=== PATIENT | male | born 1960 | race Caucasian/White ===

== ENCOUNTER → 2016-09-09 | Outpatient (CLI) | payer MEDICARE ==
[~2016-09-09] MED LIST: BREO ELLIPTA 11 EACH IH; DIVA500T2 PO; DOCU-27 PO; HYDR-965 PO; HYDR-971 PO; METH-38 PO; NAPR500T3 PO; QUET400T4 PO; TAMS0.4C97 PO; TRAV5DRO OS
--- NOTE | 2016-09-09 15:28 | EKG ---
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
[2016-09-09 16:20] LABS: BASO # 0.1 x10^3/uL (0.0-0.2); BASO % 1 % (0-3); EOS % 2 % (0-3); HEMATOCRIT 44.2 % (39.0-53.0); HEMOGLOBIN 15.4 g/dL (13.0-17.5); LYMPH # 2.3 x10^3/uL (1.0-4.8); LYMPH % 23 % (24-48); MEAN CORPUSCULAR HEMOGLOBIN 35 pg (25-35); MEAN CORPUSCULAR HGB CONC 35 g/dL (31-37); MEAN CORPUSCULAR VOLUME 101 fL (79-100); MONO % 13 % (0-9); NEUT % 62 % (31-73); PLATELET COUNT 274 x10^3/uL (140-400); RED BLOOD COUNT 4.39 x10^6/uL (4.30-5.70); RED CELL DISTRIBUTION WIDTH 13.1 % (11.5-14.5); WHITE BLOOD COUNT 10.4 x10^3/uL (4.0-11.0)
[2016-09-09 16:26] LABS: ALBUMIN 4.2 g/dL (3.4-5.0); ALBUMIN/GLOBULIN RATIO 1.1 (1.0-1.7); CALCIUM 9.4 mg/dL (8.5-10.1); CREATININE 0.7 mg/dL (0.7-1.3); GFR 117.5; POTASSIUM 4.3 mmol/L (3.5-5.1); TOTAL BILIRUBIN 0.7 mg/dL (0.2-1.0); TOTAL PROTEIN 8.2 g/dL (6.4-8.2)
--- NOTE | 2016-09-09 16:40 | RAD ---
EXAM: CHEST 2 VIEWS History: Preop lumbar spine COMPARISON: None available. TECHNIQUE: PA and lateral chest radiographs FINDINGS: The cardiomediastinal silhouette is within normal limits. The lungs are clear bilaterally. The costophrenic sulci are clear and well demarcated bilaterally. IMPRESSION: No radiographic evidence of an acute cardiopulmonary abnormality.
--- NOTE | 2016-09-11 10:14 | HP ---
ADMIT DATE: PREOPERATIVE HISTORY AND PHYSICAL Zan Cooley dictating for Dr. Fred Shields. HISTORY OF PRESENT ILLNESS: The patient is a pleasant 56-year-old who is having difficulty with low back pain and pain, which reaches both of his lower extremities. The right leg is more involved than the left. The pain does radiate into his right buttock and posterior thigh and leg. The pain started about 5 years ago and has been slowly worsening. He rates his pain as 5-6/10. Standing and sitting for long periods exacerbates his pain. Stretching or hot showers help. He takes Bruning as well for help. He has had physical therapy, which has increased his pain. He saw another surgeon last year, who recommended lumbar laminectomy. PAST MEDICAL HISTORY: Arthritis, blood clots, COPD, epilepsy, seizures, headaches/migraines, heart attack/failure, hypertension and psychiatric care. PAST SURGICAL HISTORY: Arthroscopy in 1975. FAMILY HISTORY: Brain tumor, cancer, heart problems/disease, hypertension, heart attack at an early age. SOCIAL HISTORY: Single. Exercises daily. Denies substance abuse. Smokes 1 pack per day and has for 35 years. Quit drinking alcohol 1 year ago. Drinks coffee and soda daily. ALLERGIES: DEMEROL AND GABAPENTIN. CURRENT MEDICATIONS: Depakote, Bruning, Travatan, Seroquel, senna. REVIEW OF SYSTEMS: A 12-point review of systems was obtained and is noncontributory except for that mentioned above. PHYSICAL EXAMINATION: NEUROSURGERY EXAMINATION: GENERAL APPEARANCE: Alert, pleasant, in no acute distress. HEAD: Normocephalic and atraumatic. SKIN: Warm and dry. MUSCULOSKELETAL: Lumbar paraspinal muscle bulk is normal, restricted range of motion of lumbar spine, diwa-ty-gbmdmedg tenderness of lower lumbar spine with palpation, normal range of motion of the lower extremities bilaterally. EXTREMITIES: No clubbing, cyanosis or edema. NEUROLOGIC: Alert and oriented x 3, normal recent and remote memory, strength 5/5 in bilateral lower extremities, sensory is intact to light touch in bilateral lower extremities, reflexes are trace and symmetric in the lower extremities bilaterally, positive straight leg raising on the right, negative straight leg raising on the left. Normal gait. IMAGING: Reviewed. I reviewed a lumbar MRI scan. On that study, the principal abnormalities are at L4-L5 where there is severe central spinal stenosis due to hypertrophic facet and thickened ligamentum flavum, worse on the right side as well as significant broad-based posterior disk protrusion. There was more klwm-oi-apfzgzoe stenosis at L3-L4. ASSESSMENT: 1. Spinal stenosis, lumbar region. 2. Intervertebral disk disorders with radiculopathy, lumbar region. PLAN: He has significant lumbar spinal stenosis at L4-L5, which is quite symptomatic. I recommended a bilateral lumbar hemilaminotomy with decompression of dura and nerve root as well as lumbar diskectomy to see if this one helps him. I discussed the surgery and the risks involved. He would like to go ahead. We will make the arrangements. FRED SHIELDS MD DR: ELÍAS/chino JOB#: [id number] / [id number]
== END | disposition home or self-care (01) ==
LOC: SURGPAT 16:02
PROVIDERS: ATTEND Neurological Surgery
DX: Z01.818 Encounter for other preprocedural examination (principal); R07.89 Other chest pain
CPT/HCPCS: 36415; 71020; 80053; 85027; 87641; 93005

== ENCOUNTER 2016-09-12 08:05 | Observation (INO) | payer MEDICARE ==
[2016-09-12] VITALS (10 sets, daily range): BP systolic 102–125; BP diastolic 65–85
[~2016-09-12] VITALS: Ht 185.4 cm; Wt 82.8 kg
[~2016-09-12 08:05] MED LIST changes: +BACITRACIN 50,000 UNIT in IV NORMAL SALINE 1000ML BAG 1,000 ML IRR ONE; +BUPIVAC MPF-EPI 0.5%-1:200000 30 ML VIAL. ONE; -DOCU-27 PO; -HYDR-965 PO; -METH-38 PO
[2016-09-12] MEDS ORDERED: IV RINGERS,LACTATED 1000ML 1,000 ML IV SCH ×2 (08:21→09:06)
[2016-09-12] MEDS ORDERED: BUPIVAC MPF-EPI 0.5%-1:200000 30 ML VIAL. ONE (08:22)
[2016-09-12] MEDS ORDERED: THROMBIN TOPICAL 20,000 UNIT SPRAY.SYRN KIT TP ONE (08:23)
[2016-09-12] MEDS ORDERED: GELATIN SPONGE SIZE 100. ONE (08:23)
[2016-09-12] MEDS ORDERED: KETOROLAC 60 MG/2 ML INJ FOR OR. ONE (08:23)
[2016-09-12] MEDS ORDERED: MIDAZOLAM HCL/PF 2 MG/2 ML VIAL. IV PRN (08:30)
[2016-09-12] MEDS ORDERED: LIDOCAINE 1% 1 ML SYRINGE. ID PRN ×2 (08:30→09:15)
[2016-09-12] MEDS ORDERED: fentaNYL PF VIAL 100 MCG/2 ML VIAL IV PRN ×2 (08:30→09:15)
[2016-09-12] MEDS ORDERED: MORPHINE SULFATE 2 MG/ML DISP.SYRIN. IV PRN (09:15)
[2016-09-12] MEDS ORDERED: HYDROmorphone 2 MG/ML VIAL IV PRN (09:15)
[2016-09-12] MEDS ORDERED: PROCHLORPERAZINE 10 MG/2 ML VIAL. IV PRN (09:15)
[2016-09-12] MEDS ORDERED: ONDANSETRON PF 4 MG/2 ML VIAL. IV PRN (09:15)
[2016-09-12] MEDS ORDERED: PHENYLEPHRINE 10 MG/ML VIAL. ONE (10:26)
[2016-09-12] MEDS ORDERED: PROPOFOL 50 ML IV ONE ×2 (10:26→12:26)
[2016-09-12] MEDS ORDERED: ONDANSETRON PF 4 MG/2 ML VIAL. ONE (10:26)
[2016-09-12] MEDS ORDERED: LIDOCAINE 2% PF Vial for OR 5 ML VIAL. ONE (10:26)
[2016-09-12] MEDS ORDERED: DEXAMETHASONE SOD PHOS 20 MG/5 ML VIAL. ONE (10:26)
[2016-09-12] MEDS ORDERED: PROPOFOL 20 ML IV ONE (10:26)
[2016-09-12] MEDS ORDERED: 0.9 % SODIUM CHLORIDE 50 ML VIAL. IJ ONE (10:27)
[2016-09-12] MEDS ORDERED: MIDAZOLAM HCL/PF 2 MG/2 ML VIAL. ONE (10:27)
[2016-09-12] MEDS ORDERED: REMIFENTANIL 2 MG VIAL. IV ONE (10:27)
[2016-09-12] MEDS ORDERED: ROCURONIUM 50 MG/5 ML VIAL. ONE (10:27)
[2016-09-12] MEDS ORDERED: MINERAL OIL/PETROLATUM,WHITE OPHTH OINT 3.5GM TUBE. ONE (10:28)
[2016-09-12] MEDS ORDERED: DESFLURANE > 120 MINUTES IH ONE (10:42)
--- NOTE | 2016-09-12 14:04 | DISCH ---
DISCHARGE INSTRUCTIONS Condition on Discharge Condition on Discharge: Stable Activity After Discharge Activity Instructions for Disc: Activity as tolerated, Avoid exertion Other activity instructions: no driving for a week Bathing Instructions: Shower-keep dressing dry Lifting Instructions after Dis: No heavy lifting, No pulling or pushing, Do not lift >10 pounds Diet after Discharge Additional Diet Restrictions: resume home diet Wound Incision Care Wound/Incision Care: Ice to area for comfort Other wound/incision instructi: may remove dressing in 48 hrs if dry then may shower no soaking Contacting the after DC Call your doctor for: Concerns you may have Follow-Up Follow up with: Dr. Shields's nurse in 2 weeks [phone] CALIXTO SHIELDS MD September 12, 2016 14:04
[2016-09-12] MEDS ORDERED: DOCU-27 PO (14:06)
[2016-09-12] MEDS ORDERED: METH-38 PO (14:06)
[2016-09-12] MEDS ORDERED: HYDR-965 PO (14:07)
[2016-09-12] MEDS ORDERED: NAPROXEN 500 MG TABLET PO PRN ×2 (14:30→15:00)
[2016-09-12] MEDS: fentaNYL PF VIAL 100 MCG/2 ML VIAL IV PRN ×4 (14:31→16:54)
[2016-09-12] MEDS ORDERED: HYDROcodone/APAP 7.5/325MG 1 TAB TABLET PO PRN (14:45)
[2016-09-12] MEDS ORDERED: ACETAMINOPHEN 325 MG TABLET. PO PRN (14:45)
[2016-09-12] MEDS ORDERED: MAG HYDROX/ALUMINUM HYD/SIMETH 30 ML ORAL.SUSP PO PRN (14:45)
[2016-09-12] MEDS ORDERED: CALCIUM CARBONATE 500 MG TAB.CHEW PO PRN (14:45)
[2016-09-12] MEDS ORDERED: diphenhydrAMINE 50 MG/ML VIAL IV PRN (14:45)
[2016-09-12] MEDS ORDERED: diphenhydrAMINE HCL 25 MG CAPSULE PO PRN (14:45)
[2016-09-12] MEDS ORDERED: MAGNESIUM HYDROXIDE 2,400 MG/30 ML ORAL.SUSP. PO PRN (14:45)
[2016-09-12] MEDS ORDERED: 0.9 % SODIUM CHLORIDE 10 ML DISP.SYRIN. IV PRN (14:45)
[2016-09-12] MEDS: POTASSIUM CL 20MEQ D5-0.45NACL 1,000 ML IV SCH (15:21)
[2016-09-12] MEDS: ALBUTEROL SULFATE 2.5 MG/3 ML NEBU. NEB SCH ×2 (15:31→20:38)
[2016-09-12] MEDS: HYDROcodone/APAP 7.5/325MG 1 TAB TABLET PO PRN (18:14)
[2016-09-12] MEDS: BUDESONIDE 0.5 MG/2 ML NEBU. NEB SCH (20:38)
[2016-09-12] MEDS ORDERED: LATANOPROST 0.005% OPHTH SOLUTION 2.5ML BOTTLE. OU SCH (21:00)
[2016-09-12] MEDS ORDERED: QUEtiapine 100 MG TABLET. PO SCH (21:00)
[2016-09-12] MEDS: METHOCARBAMOL 750 MG TABLET PO SCH (21:43)
[2016-09-12] MEDS: DOCUSATE SODIUM 100 MG CAPSULE. PO SCH (21:43)
[2016-09-13] MEDS: POTASSIUM CL 20MEQ D5-0.45NACL 1,000 ML IV SCH ×2 (00:31→10:31)
[2016-09-13] MEDS: HYDROcodone/APAP 7.5/325MG 1 TAB TABLET PO PRN ×3 (01:01→09:38)
[2016-09-13 03:02] VITALS: BP 94/49
[2016-09-13 06:39] VITALS: BP 131/70
[2016-09-13] MEDS: METHOCARBAMOL 750 MG TABLET PO SCH (08:28)
[2016-09-13] MEDS: DOCUSATE SODIUM 100 MG CAPSULE. PO SCH (08:28)
[2016-09-13] MEDS: ALBUTEROL SULFATE 2.5 MG/3 ML NEBU. NEB SCH ×2 (08:36→12:26)
[2016-09-13] MEDS: BUDESONIDE 0.5 MG/2 ML NEBU. NEB SCH (08:36)
[2016-09-13] MEDS ORDERED: TAMSULOSIN 0.4 MG CAP.ER.24H. PO SCH (09:00)
[2016-09-13] MEDS ORDERED: DIVALPROEX DELAYED RELEASE 500 MG TABLET.DR. PO SCH (09:00)
--- NOTE | 2016-09-13 10:13 | HP ---
ADMIT DATE: 09/12/2016 PREOPERATIVE HISTORY AND PHYSICAL Zan Cooley dictating for Dr. Fred Shields. HISTORY OF PRESENT ILLNESS: The patient is a pleasant 56-year-old who is having difficulty with low back pain and pain, which reaches both of his lower extremities. The right leg is more involved than the left. The pain does radiate into his right buttock and posterior thigh and leg. The pain started about 5 years ago and has been slowly worsening. He rates his pain as 5-6/10. Standing and sitting for long periods exacerbates his pain. Stretching or hot showers help. He takes Porum as well for help. He has had physical therapy, which has increased his pain. He saw another surgeon last year, who recommended lumbar laminectomy. PAST MEDICAL HISTORY: Arthritis, blood clots, COPD, epilepsy, seizures, headaches/migraines, heart attack/failure, hypertension and psychiatric care. PAST SURGICAL HISTORY: Arthroscopy in 1975. FAMILY HISTORY: Brain tumor, cancer, heart problems/disease, hypertension, heart attack at an early age. SOCIAL HISTORY: Single. Exercises daily. Denies substance abuse. Smokes 1 pack per day and has for 35 years. Quit drinking alcohol 1 year ago. Drinks coffee and soda daily. ALLERGIES: DEMEROL AND GABAPENTIN. CURRENT MEDICATIONS: Depakote, Porum, Travatan, Seroquel, senna. REVIEW OF SYSTEMS: A 12-point review of systems was obtained and is noncontributory except for that mentioned above. PHYSICAL EXAMINATION: NEUROSURGERY EXAMINATION: GENERAL APPEARANCE: Alert, pleasant, in no acute distress. HEAD: Normocephalic and atraumatic. SKIN: Warm and dry. MUSCULOSKELETAL: Lumbar paraspinal muscle bulk is normal, restricted range of motion of lumbar spine, ffgi-hq-jqgummtu tenderness of lower lumbar spine with palpation, normal range of motion of the lower extremities bilaterally. EXTREMITIES: No clubbing, cyanosis or edema. NEUROLOGIC: Alert and oriented x 3, normal recent and remote memory, strength 5/5 in bilateral lower extremities, sensory is intact to light touch in bilateral lower extremities, reflexes are trace and symmetric in the lower extremities bilaterally, positive straight leg raising on the right, negative straight leg raising on the left. Normal gait. IMAGING: Reviewed. I reviewed a lumbar MRI scan. On that study, the principal abnormalities are at L4-L5 where there is severe central spinal stenosis due to hypertrophic facet and thickened ligamentum flavum, worse on the right side as well as significant broad-based posterior disk protrusion. There was more tsbl-kh-unwhczmn stenosis at L3-L4. ASSESSMENT: 1. Spinal stenosis, lumbar region. 2. Intervertebral disk disorders with radiculopathy, lumbar region. PLAN: He has significant lumbar spinal stenosis at L4-L5, which is quite symptomatic. I recommended a bilateral lumbar hemilaminotomy with decompression of dura and nerve root as well as lumbar diskectomy to see if this one helps him. I discussed the surgery and the risks involved. He would like to go ahead. We will make the arrangements. FRED SHIELDS MD DR: ELÍAS/chino JOB#: [id number] / [id number]
[2016-09-13 10:59] VITALS: BP 111/63
[2016-09-13] MEDS ORDERED: NON FORMULARY ITEM (Fluticasone/Vilanterol (Breo Ellipta 100-25 Mcg Inh) 1 PUFF) IH SCH (12:00)
--- NOTE | 2016-09-13 13:19 | OP ---
DATE OF SURGERY: 09/12/2016 PREOPERATIVE DIAGNOSIS: Severe lumbar spinal stenosis L4-L5. POSTOPERATIVE DIAGNOSIS: Severe lumbar spinal stenosis, L4-L5. OPERATION PERFORMED: 1. Bilateral hemilaminotomies with decompression of dura and nerve root L4-L5. 2. Lumbar microdiskectomy L4-L5, right. The operation was done with the EMG monitoring, fluoroscopy, microscopic dissection. BOTTLING ROOM WORKER: Susan Levy APRN assisted with the surgery. She assisted with the decompression, diskectomy as well as the closure. OPERATIVE INDICATIONS: The patient is a very pleasant 56-year-old man who developed intractable back and bilateral leg pain. He underwent physical therapy with no help. He saw another surgeon last year, recommended lumbar laminectomy. On imaging studies, he had very significant stenosis at L4-L5, which was worse on the right side along with significant degenerative problems with disk bulging. I recommended lumbar bilateral microdecompressive surgery at L4-L5. I discussed with him the surgery and the risks involved. He did have some stenosis ____ uqow-ib-rjdpbxuf stenosis at L3-L4, but I felt that this is not symptomatic and could not recommended surgery at this level at this time. He understood the rationale for surgery, the risks involved. He wished to go ahead. DESCRIPTION OF PROCEDURE: Following general endotracheal anesthesia, the patient was positioned prone on the Antione table. His lumbar region was prepped and draped in standard fashion. RICKEY hose and AV impulse boots were applied for DVT prophylaxis. A microscope was draped. Fluoroscopy was draped and brought into field. Monitoring was established. Ancef 2 g was given less than 1 hour prior to initiation of the surgery. Using fluoroscopic guidance, an incision was made over the L4-L5 interspace. I dissected down through skin, subcutaneous tissue, reflected the paraspinal muscles and placed a [place] micro disk retractor. I began to work on the right side and through the microscope using microscopic technique, I burred down a generous hemilaminotomy. I drilled down to perform a partial foraminotomy and exposed the exiting roots and then superior to this side. I again exposed the ligamentum flavum. I then trimmed this away from medial to lateral, exposing the dura and the exiting root. There was synovial cyst material emanating from the facet, but did not appear to be a significant contact with the dura and/or ligament; however; this side was densely scarred to the underlying dura. I gently worked down through this and peeled then trimmed away ligament and gradually was able to obtain an excellent decompression. I reflected the dura medially. There was significant disk bulging and subligamentous herniated disk and I incised the ligament annulus and then worked and performed a diskectomy with pituitary rongeurs which was fully decompress the entire region. At this point, then I had an excellent decompression on the right side at L4-L5 and I switched to the left and replaced retracting the left side and brought again through the microscope with microscopic technique. I burred down a generous hemilaminotomy and a partial foraminotomy. Again, I trimmed away very thickened ligamentum flavum. On this side ligamentum flavum was a primary problem was very thick and compressing the dura and the exiting root and I peeled this material away was not nearly the contralateral side, the disk was much flatter and firmer and no diskectomy was warranted on this side as I worked and fully decompressed the dura and the exiting root. The region became very well decompressed. I did use small amounts of bone wax on both sides as well as bipolar cautery for hemostasis. Following this, I irrigated copiously with antibiotic solution. I assured myself of excellent hemostasis in the muscle. I closed the wound in layers with absorbable sutures; the skin was closed with 4-0 subcuticular stitch. Operation went very well and the patient was taken to recovery room in excellent condition. I was quite pleased with the surgery. CALIXTO SHIELDS MD DR: ELÍAS/chino JOB#: [id number] / [id number]
--- NOTE | 2016-09-16 15:24 | PATHOLOGY ---
PATHOLOGY REPORT * * * * * * * * FINAL DIAGNOSIS: Segments of fibrocartilaginous, fibroadipose, and skeletal muscle tissue and bone, lumbar disc and decompression: - Degenerative changes of fibrocartilaginous tissue. COMMENT: There is no evidence of an acute inflammatory process or malignancy. (JPM:tona; d/t: 09/16/2016) REPORT ELECTRONICALLY SIGNED BY: Mohan Foster M.D. DATE/TIME: 09/16/2016 15:23 * * * * * * * * GROSS PATHOLOGY: Received in formalin labeled "Garth Marin, lumbar disc and decompression," are multiple segments of melvin rubbery and gritty tissue measuring 6.9 x 6.3 x 0.9 cm in aggregate dimensions admixed with bone. The tissue is submitted representatively in cassette A1, following decalcification (KAH:tona; 09/13/2016) INITIAL CPT CODE(S): A; 00149, 07729 Professional services [place] [facility] [place] [address] Technical services performed by [facility] at [address] [place] [address]. SPECIMEN(S) RECEIVED: A.Lumbar disc and decompression CLINICAL HISTORY: Lumbar stenosis PATIENT: GARTH MARIN /AGE: 9 1960 (Age: 56) PATIENT #: [id number] ALT CASE #: SPECIMEN COLLECTION DATE: 09/12/2016 SPECIMEN RECEIVED DATE: 09/12/2016 [facility] - [address] [place] [address] - PHONE: [phone] * * * END OF REPORT * * *
== END 2016-09-13 12:35 | disposition home or self-care (01) ==
LOC: SURG 08:05 → 4 SOUTHEST 14:30
PROVIDERS: ADMIT Neurological Surgery; ATTEND Neurological Surgery
DX: M48.06 Spinal stenosis, lumbar region (principal); M54.16 Radiculopathy, lumbar region; I10 Essential (primary) hypertension; J44.9 Chronic obstructive pulmonary disease, unspecified; G40.909 Epilepsy, unspecified, not intractable, without status epilepticus
CPT/HCPCS: 63030; 76000; 94250; 94640; 94760; 96374; 96376; 97116; 97162; 99406; G0378; G0379; G8978; G8979; G8980; J0690; J1100; J1885; J2250; J2405; J2704; J3010; J3490; J7030; J7120

== ENCOUNTER → 2016-12-20 | Outpatient (CLI) | payer MEDICARE, OTHER ==
[~2016-12-20] MED LIST changes: -BACITRACIN 50,000 UNIT in IV NORMAL SALINE 1000ML BAG 1,000 ML IRR ONE; -BUPIVAC MPF-EPI 0.5%-1:200000 30 ML VIAL. ONE; +DOCU-109 PO; +HYDR-965 PO; +METH-38 PO
--- NOTE | 2016-12-20 13:06 | RAD ---
APPROVED REPORT Test Type: Pharmacological Stress Nurse/Tech: Rayna Carbone R.N. Test Indications: SOA Cardiac History: seizures, smoker Medications: See Electronic Medical Record Medical History: See Electronic Medical Record Resting ECG: NSR with PVC's Resting Heart Rate: 79 bpm Resting Blood Pressure: 134/77mmHg Pretest Chest Pain: No chest pain Nurse/Tech Notes S1S2, lungs sound clear Consent: The procedure was explained to the patient in lay terms. Informed consent was witnessed. Ruddy eout was entered into [employer]. History and Stress Test performed by Rayna Carbone R.N. Stress Symptoms Dyspnea POST EXERCISE Reason for Termination: Reached target heart rate Target HR: 141 Max HR: 169 bpm Exercise duration: 8 min min:sec, 3 Stage Max Blood Pressure: 141/80mmHg Blood Pressure response to exercise: Normal blood pressure response during stress. Heart Rate response to exercise: wni Chest Pain: No. Arrhythmia: Yes. no PVC's noted during exercise but had bigeminy during recovery ST Change: No. INTERPRETATION Stress EKG Conclusion: Occ PVC's in recovery suggestive of ischemia but no sustained arrhythmias. No clear ischemia noted. Imaging Protocol IMAGE PROTOCOL: Rest Tc-99m/stress Tc-99m 1 day Rest: Stress: Viability: Radiopharm.Tc99m CdbrbijgyUx70q Sestamibi Dose11.3mCi 33mCi Duration 15min. 12min. Img Date 12/20/2016 12/20/2016 Inj-Img Paeb91gvn. 60min. Rest Admin Site:IV - Right AntecubitalAdministrator:RT Yaneth (R)(N) Stress Admin Site: IV - Right AntecubitalAdministrator: RT Yaneth (R)(N) STRESS DATA End Diast. Vol.128.0mlAv. Heart Rate79.0bpm End Syst. Vol.51.0mlCO Index BSA0.0L/min Myocardial Xdiy154.0gEject. Cixcjqne66.0% Stress Rates Pk. Fill Rate3.02EDV/secLVtime Pk. Fill 185.76msec Pk. Empty Rate3.53ESV/secLVtime Pk. Vjxhx173.53msec 04/30 Pk. Fill1.06EDV/sec Stress Scores Regional WT1.00Summed WT6.00 Regional WM0.00Summed WM2.00 The rest and stress images show normal perfusion, normal contraction and thickening. LV Perf. Quant 17 Seg. SSS0.00 17 Seg. SRS1.00 17 Seg. SDS0.00 Stress Defect Extent (% LAD)0.00Rest Defect Extent (% LAD)0.00Rev. Defect Extent (% LAD)0.00 Stress Defect Extent (% LCX) 0.00Rest Defect Extent (% LCX)0.00Rev. Defect Extent (% LCX)0.00 Stress Defect Extent (% RCA)0.00Rest Defect Extent (% RCA)0.00Rev. Defect Extent (% RCA)0.00 Stress Defect Extent (% PEMA)0.00Rest Defect Extent (% PEMA)0.00Rev. Defect Extent (% PEMA)0.00 Other Information Quality:Fair Risk Assessment: Low Risk Conclusion 1. Average exercise capacity with 9.0 Mets on Abhijit Protocol. 2. EKG suggestive but not diagnostic of ischemia with PVC's in recovery. 3. Normal perfusion at stress/rest. 4. Normal EF at > 60% 5. Low risk study.
== END | disposition home or self-care (01) ==
LOC: NM 07:36
PROVIDERS: ATTEND Internal Medicine Pulmonary Disease
DX: R06.02 Shortness of breath (principal); J44.9 Chronic obstructive pulmonary disease, unspecified; F17.200 Nicotine dependence, unspecified, uncomplicated
CPT/HCPCS: 78452; 93017; 96374; 96376; A9500

== ENCOUNTER 2017-04-01 09:17 | Outpatient (CLI) | payer MEDICARE, OTHER ==
[~2017-04-01] VITALS: Ht 185.4 cm; Wt 79.4 kg
[2017-04-01] VITALS (11 sets, daily range): BP systolic 84–119; BP diastolic 55–81
[~2017-04-01 09:17] MED LIST changes: -NAPR500T3 PO; +NAPR500T4 PO
[2017-04-01 10:22] LABS: BASO # 0.1 x10^3/uL (0.0-0.2); BASO % 2 % (0-3); EOS % 11 % (0-3); HEMATOCRIT 43.6 % (39.0-53.0); HEMOGLOBIN 14.8 g/dL (13.0-17.5); LYMPH # 2.8 x10^3/uL (1.0-4.8); LYMPH % 45 % (24-48); MEAN CORPUSCULAR HEMOGLOBIN 35 pg (25-35); MEAN CORPUSCULAR HGB CONC 34 g/dL (31-37); MEAN CORPUSCULAR VOLUME 102 fL (79-100); MONO % 12 % (0-9); NEUT % 30 % (31-73); PLATELET COUNT 238 x10^3/uL (140-400); RED BLOOD COUNT 4.27 x10^6/uL (4.30-5.70); RED CELL DISTRIBUTION WIDTH 12.8 % (11.5-14.5); WHITE BLOOD COUNT 6.1 x10^3/uL (4.0-11.0)
[2017-04-01 10:31] LABS: PROTHROMBIN TIME PATIENT 12.3 SEC (11.7-14.0)
[2017-04-01 10:59] LABS: CALCIUM 9.3 mg/dL (8.5-10.1); CREATININE 0.8 mg/dL (0.7-1.3); GFR 100.4; POTASSIUM 3.9 mmol/L (3.5-5.1)
[2017-04-01 11:05] LABS: ALBUMIN 3.8 g/dL (3.4-5.0); TOTAL BILIRUBIN 0.5 mg/dL (0.2-1.0); TOTAL PROTEIN 7.6 g/dL (6.4-8.2)
[2017-04-01] MEDS ORDERED: LIDOCAINE 2% 20 ML VIAL. ONE (12:01)
[2017-04-01] MEDS ORDERED: IOHEXOL 300 MG/ML 100ML VIAL. ONE (12:01)
[2017-04-01] MEDS ORDERED: HEPARIN for IV BOLUS 10,000 UNIT/10 ML VIAL. ONE (12:14)
[2017-04-01] MEDS ORDERED: VERAPAMIL 5 MG/2 ML VIAL. ONE (12:14)
[2017-04-01] MEDS ORDERED: MIDAZOLAM HCL/PF 2 MG/2 ML VIAL. ONE (12:14)
[2017-04-01] MEDS ORDERED: fentaNYL PF VIAL 100 MCG/2 ML VIAL ONE (12:14)
[2017-04-01] MEDS ORDERED: NITROGLYCERIN 200 MCG/2 ML SYRINGE FOR CATH/VASC LAB. ONE (12:16)
[2017-04-01] MEDS ORDERED: LIDOCAINE 2% 20 ML VIAL. IJ ONE (12:45)
[2017-04-01] MEDS ORDERED: CONTRAST GIVEN MC PRN (12:45)
[2017-04-01] MEDS ORDERED: HEPARIN for IV BOLUS 10,000 UNIT/10 ML VIAL. IART ONE (12:45)
[2017-04-01] MEDS ORDERED: MIDAZOLAM HCL/PF 2 MG/2 ML VIAL. IV ONE (12:45)
[2017-04-01] MEDS ORDERED: VERAPAMIL 5 MG/2 ML VIAL. IART ONE (12:45)
[2017-04-01] MEDS ORDERED: fentaNYL PF VIAL 100 MCG/2 ML VIAL IV ONE (12:45)
[2017-04-01] MEDS ORDERED: IOHEXOL 300 MG/ML 100ML VIAL. IART ONE (12:45)
[2017-04-01] MEDS ORDERED: NITROGLYCERIN 200 MCG/2 ML SYRINGE FOR CATH/VASC LAB. IART ONE (12:45)
--- NOTE | 2017-04-01 13:09 | CARD ---
APPROVED REPORT Procedure(s) performed: Left heart catheterization, selective coronary angiography and left ventricul ography via right transradial approach. Moderate Sedation: 28 Minutes INDICATION The indication(s) include : Chest pain, abnormal stress test, PVC's. PROCEDURE NARRATIVE After explaining the risks, benefits and alternative options, informed consent was obtained from mack ent. Patient was brought to the cardiac Veneer Marker and right wrist was prepped and draped in the usual fashion after confirming a positive modified Ray's test. Arterial access was obtained in the [facility] t radial artery and a 6 Kittitian sheath was inserted. 6 Kittitian Rajesh catheter was used to perform bharath ective angiography of the left and right coronary arteries. 6 Kittitian pigtail catheter was used to pe rform left ventriculography. Patient tolerated the procedure well. Hemostasis was achieved using TR band. There were no immediate complications. The following findings were noted. FINDINGS 1. Hemodynamics: Left ventricular end-diastolic pressure of 18 mmHg. No pullback gradient across th e aortic valve. 2. Left ventriculography: Normal left ventricle systolic function with ejection fraction estimated at 55%. No significant mitral regurgitation seen. 3. Coronary angiography: a. The left main coronary artery arose from the left sinus of Valsalva, gave rise to the left anteri or descending and left circumflex arteries and did not show any significant stenosis. b. The left anterior descending artery did not show any significant stenosis. c. The left circumflex artery did not show any significant stenosis. d. The right coronary artery arose from the right sinus of Valsalva and did not show any significant stenosis. Conclusion 1. No significant coronary artery disease 2. Normal left ventricle systolic function with ejection fraction estimated at 55%. Recommendations Medical Therapy
[2017-04-01] MEDS ORDERED: IV 1/2 NORMAL SALINE 1,000 ML IV SCH (13:10)
--- NOTE | 2017-04-01 13:12 | PDOC ---
MODERATE SEDATION ASSESSMENT RISKS/ALTERNATIVES Risks/Alternatives Risks and alternatives of this type of sedation and procedure discussed with: RISK/ALTERNATIVES: Patient H & P ON CHART H & P H & P on chart and reviewed for co-morbid conditions and appropriate labs. H&P ON CHART: Yes STATUS PREG STATUS ASSESSED: N/A MEDS/ALLERGIES REVIEWED Meds/Allergies Reviewed Medications and Allergies including time and route of recently administered narcotics and sedatives. MEDS/ALLERGIES REVIEWED: Yes ASA RATING ASA RATING: II AIRWAY ASSESSMENT Airway Assessment Airway patency, oral function limitations, presence of caps, crowns, dentures, partials, and ability to extend neck assessed. AIRWAY ASSESSMENT: Yes MALLAMPATI SCORE MALLAMPATI SCORE: II PRE-SEDATION ASSESSMENT PRE-SEDATION ASSESSMENT: Yes RAFAELA RICCI MD Apr 01, 2017 13:12
[2017-04-01] MEDS ORDERED: NITROGLYCERIN SUBLINGUAL 0.4 MG BOTTLE OF 25. SL PRN (13:15)
[2017-04-01] MEDS ORDERED: METO-239 PO (14:02)
[2017-04-02] MEDS ORDERED: METOPROLOL SUCC 24HR ER 25 MG TAB.ER.24H. PO SCH (09:00)
== END 2017-04-01 15:35 | disposition home or self-care (01) ==
LOC: CCL 09:17
PROVIDERS: ATTEND Internal Medicine Cardiovascular Disease
DX: R06.00 Dyspnea, unspecified (principal)
CPT/HCPCS: 36415; 80053; 85025; 85610; 93458; C1769; C1892; J1644; J2250; J3010; J3490; Q9967; 99152; 99153; J2001

== ENCOUNTER → 2018-04-20 | Outpatient (CLI) | payer MEDICARE ==
[2017-04-01 15:20] VITALS: BP 93/60
[~2018-04-20] MED LIST changes: +HYDR-3164 PO; +HYDR-3165 PO; -HYDR-965 PO; -HYDR-971 PO; +METO-239 PO; +NAPR-514 PO; -NAPR500T4 PO
--- NOTE | 2018-04-20 14:51 | RAD ---
Neck soft tissue ultrasound April 20, 2018 INDICATION: Lateral neck mass. COMPARISON: None available TECHNIQUE: Sonographic evaluation of the left lateral neck was performed utilizing grayscale and color Doppler. FINDINGS: The upper cervical chain there is a 2.2 x 0.9 x 0.7 cm lymph node with thickened cortex and reniform morphology. Further inferiorly, there is a 1.4 x 0.4 x 0.4 cm lymph node with thickened cortex and reniform morphology. Findings remain indeterminate. Correlate with any upper superinfection. No cystic changes or hemorrhage identified. IMPRESSION: Left cervical lymphadenopathy with thickened cortex. Correlate with any recent upper respiratory infection. Further evaluation with CT neck with contrast may be of benefit as clinically warranted. Electronically signed by: Kristin Harrison MD (04/20/2018 2:47 PM) [facility]
== END | disposition home or self-care (01) ==
LOC: US 14:05
PROVIDERS: ATTEND Family Medicine
DX: R59.1 Generalized enlarged lymph nodes (principal)
CPT/HCPCS: 76536

== ENCOUNTER → 2018-08-17 | Outpatient (CLI) | payer MEDICAID, MEDICARE ==
[2017-04-01 15:20] VITALS: BP 93/60
--- NOTE | 2018-08-17 15:24 | CARD ---
MR#: [id number] Date of Study: 08/17/2018 Ordering Physician: RAFAELA CASE, Referring Physician: RAFAELA CASE, Tech: Zoë Ritter APPROVED REPORT EXAM: Two-dimensional and M-mode echocardiogram with Doppler and color Doppler. Other Information Quality : AverageHR: 84bpm Technically limited study due to COPD INDICATION COPD Arrhythmia RISK FACTORS Hypertension Smoking 2D DIMENSIONS RVDd2.5 (2.9-3.5cm)Left Atrium(2D)2.9 (1.6-4.0cm) IVSd1.1 (0.7-1.1cm)Aortic Root(2D)3.0 (2.0-3.7cm) LVDd5.0 (3.9-5.9cm)LVOT Diameter2.3 (1.8-2.4cm) PWd1.0 (0.7-1.1cm)LVDs2.9 (2.5-4.0cm) FS (%) 42.2 %SV87.0 ml LVEF(%)73.0 (>50%) Aortic Valve AoV Peak Keenan.110.0cm/sAoV VTI17.9cm AO Peak GR.4.8mmHgLVOT Peak Keenan.84.3cm/s LVOT VTI 13.80cmAO Mean GR.3mmHg FRANSISCO (VMAX)2.22zi4ISR (VTI)3.14cm2 Mitral Valve MV E Qbmnvbma12.6cm/sMV DECEL CJYU30lb MV A Ixrmtjiv52.8cm/sMV FWP71qw E/A Ratio0.6MVA (PHT)8.32cm2 TDI E/Lateral E'3.9E/Medial E'5.7 Pulmonary Valve PV Peak Phhlhtgc10.1cm/sPV Peak Grad.3mmHg Tricuspid Valve TR P. Yuhojliz382sn/sRAP OCUBUTXV0lfXe TR Peak Gr.77fnAuLPCN38mpOm Pulmonary Vein S1 Ryylaprl03.3cm/sD2 Gfczprfu47.2cm/s PVa oozflcag036dwam LEFT VENTRICLE The left ventricle is normal size. There is normal left ventricular wall thickness. The left ventricu lar systolic function is normal. The Ejection Fraction is 55%. There is normal LV segmental wall silke on. Transmitral Doppler flow pattern is Grade I-abnormal relaxation pattern. RIGHT VENTRICLE The right ventricle is normal size. There is normal right ventricular wall thickness. The right ventr icular systolic function is normal. ATRIA The left atrium size is normal. The right atrium size is normal. The interatrial septum is intact wit h no evidence for an atrial septal defect or patent foramen ovale as noted on 2-D or Doppler imaging. AORTIC VALVE The aortic valve is normal in structure and function. Doppler and Color Flow revealed trace aortic re gurgitation. There is no significant aortic valvular stenosis. MITRAL VALVE The mitral valve is normal in structure and function. There is no evidence of mitral valve prolapse. There is no mitral valve stenosis. Doppler and Color Flow revealed no mitral valve regurgitation note d. TRICUSPID VALVE The tricuspid valve is normal in structure and function. Doppler and Color Flow revealed trace tricus pid regurgitation with an estimated PAP of 22 mmHg. There is no tricuspid valve stenosis. PULMONIC VALVE The pulmonary valve is normal in structure and function. Doppler and Color Flow revealed trace pulmon ic valvular regurgitation. GREAT VESSELS The aortic root is normal in size. The IVC is normal in size and collapses >50% with inspiration. PERICARDIAL EFFUSION There is no evidence of significant pericardial effusion. Critical Notification Critical Value: No <Conclusion> The left ventricular systolic function is normal. The Ejection Fraction is 55%. There is normal LV segmental wall motion. Trace tricuspid regurgitation with an estimated PAP of 22 mmHg. There is no evidence of significant pericardial effusion. Signed by : Rafaela Case, Electronically Approved : 08/17/2018 15:23:43
== END | disposition home or self-care (01) ==
LOC: ECHO 13:46
PROVIDERS: ATTEND Internal Medicine Cardiovascular Disease
DX: I49.3 Ventricular premature depolarization (principal); J44.9 Chronic obstructive pulmonary disease, unspecified; I10 Essential (primary) hypertension; F17.200 Nicotine dependence, unspecified, uncomplicated
CPT/HCPCS: 93306

== ENCOUNTER → 2019-10-18 | Outpatient (CLI) | payer MEDICARE, MEDICAID ==
[2017-04-01 15:20] VITALS: BP 93/60
--- NOTE | 2019-10-18 14:06 | CARD ---
MR#: [id number] Date of Study: 10/18/2019 Ordering Physician: RAFAELA CASE, Referring Physician: RAFAELA CASE, Tech: Zoë Ritter APPROVED REPORT EXAM: Two-dimensional and M-mode echocardiogram with Doppler and color Doppler. Other Information Quality : AverageHR: 83bpm INDICATION Arrhythmia Syncope RISK FACTORS Hypertension Smoking 2D DIMENSIONS RVDd3.2 (2.9-3.5cm)Left Atrium(2D)3.7 (1.6-4.0cm) IVSd1.1 (0.7-1.1cm)Aortic Root(2D)3.1 (2.0-3.7cm) LVDd5.0 (3.9-5.9cm)LVOT Diameter2.0 (1.8-2.4cm) PWd0.9 (0.7-1.1cm)LVDs3.6 (2.5-4.0cm) FS (%) 29.2 %SV67.0 ml LVEF(%)55.7 (>50%) Aortic Valve AoV Peak Keenan.97.5cm/sAoV VTI19.2cm AO Peak GR.3.8mmHgLVOT Peak Keenan.69.2cm/s LVOT VTI 14.56cmAO Mean GR.2mmHg FRANSISCO (VMAX)1.10sz1TGG (VTI)2.34cm2 Mitral Valve MV E Etafvdkn98.4cm/sMV DECEL [id number] MV A Kyqywmfs55.1cm/sMV E Mean Gr.1mmHg MV [id number] Ratio1.2 MVA (PHT)3.13cm2 TDI E/Lateral E'6.5E/Medial E'8.1 Pulmonary Valve PV Peak Sktmleuo50.1cm/sPV Peak Grad.3mmHg Tricuspid Valve TR P. Oobfxppb096gs/sRAP [id number] TR Peak Gr.96cdAiPJFN26fcQm LEFT VENTRICLE The left ventricle is normal size. There is borderline to mild concentric left ventricular hypertroph y. The left ventricular systolic function is normal. The Ejection Fraction is 50-55%. There is normal LV segmental wall motion. Transmitral Doppler flow pattern is Grade II-pseudonormal filling dynamics . RIGHT VENTRICLE The right ventricle is normal size. There is normal right ventricular wall thickness. The right ventr icular systolic function is normal. ATRIA The left atrium size is normal. The right atrium size is normal. The interatrial septum is intact wit h no evidence for an atrial septal defect or patent foramen ovale as noted on 2-D or Doppler imaging. AORTIC VALVE The aortic valve is normal in structure and function. Doppler and Color Flow revealed no significant aortic regurgitation. There is no significant aortic valvular stenosis. MITRAL VALVE The mitral valve is normal in structure and function. There is no evidence of mitral valve prolapse. There is no mitral valve stenosis. Doppler and Color-flow revealed trace mitral regurgitation. TRICUSPID VALVE The tricuspid valve is normal in structure and function. Doppler and Color Flow revealed trace tricus pid regurgitation with an estimated PAP of 24 mmHg. There is no tricuspid valve stenosis. PULMONIC VALVE The pulmonic valve is not well visualized. Doppler and Color Flow revealed trace pulmonic valvular re gurgitation. GREAT VESSELS The aortic root is normal in size. The IVC is normal in size and collapses >50% with inspiration. PERICARDIAL EFFUSION There is no evidence of significant pericardial effusion. Critical Notification Critical Value: No <Conclusion> The left ventricular systolic function is normal. The Ejection Fraction is 50-55%. There is normal LV segmental wall motion. Transmitral Doppler flow pattern is Grade II-pseudonormal filling dynamics. Trace mitral regurgitation. Trace tricuspid regurgitation with an estimated PAP of 24 mmHg. There is no evidence of significant pericardial effusion. Signed by : Rafaela Case, Electronically Approved : 10/18/2019 14:06:28
== END | disposition home or self-care (01) ==
LOC: ECHO 10:33
PROVIDERS: ATTEND Internal Medicine Cardiovascular Disease
DX: I51.7 Cardiomegaly (principal); R55 Syncope and collapse
CPT/HCPCS: 93306